=== PATIENT | male | born 1980 | race Caucasian/White ===

== ENCOUNTER 2017-03-28 07:19 | Day surgery (SDC) | payer OTHER ==
[~2017-03-28 07:19] MED LIST: Ketorolac 30 MG/ML SDV ONE; Lactated Ringers 1,000 ML IV SCH; Lactated Ringers 1,000 ML ONE; Lidocaine 1% 4 ML ONE; Lidocaine 1%/Sod Bicarbonate in NS 8.4% 1 ML Syringe PRN; Midazolam 1 MG/ML 2 ML SDV ONE; Ondansetron 4 MG/2 ML SDV ONE; Propofol 200 MG/20 ML SDV ONE; Sodium Chloride 0.9% 10 ML Syringe FLUSH PRN; Succinylcholine 200 MG/10 ML MDV ONE; ceFAZolin 1 GM Vial ONE; fentaNYL 250 MCG/5 ML SDV ONE
--- NOTE | 2017-03-28 07:52 | PCM.PREANE ---
Preanesthetic Assessment - Anesthesia/Transfusion/Family Hx Anesthesia History: Prior Anesthesia Without Reaction Family History of Anesthesia Reaction: No - Review of Systems General: No Symptoms Pulmonary: No Symptoms Cardiovascular: No Symptoms Gastrointestinal: No Symptoms Neurological: Numbness, Tingling (Left Arm/Hand. ) Other: Reports: None, Neck Pain (Neck pain when feeling anxious. ) - Physical Assessment NPO Status Date: 03/27/17 NPO Status Time: 22:45 O2 Sat by Pulse Oximetry: 98 Respiratory Rate: 16 Vital Signs: Last Vital Signs Temp 36.3 C 03/28/17 07:10 Pulse 65 03/28/17 07:10 Resp 16 03/28/17 07:10 BP 134/91 H 03/28/17 07:10 Pulse Ox 98 03/28/17 07:10 Weight: 88 kg ASA Class: 2 Mental Status: Alert & Oriented x3 Dentition: Reports: Normal Dentition (Permanent Retainer) Thyro-Mental Finger Breadths: 3 Mouth Opening Finger Breadths: 3 ROM/Head Extension: Full Lungs: Clear to Auscultation, Normal Respiratory Effort Cardiovascular: Regular Rate, Regular Rhythm - Lab Values: Laboratory Last Values MRSA (PCR) Negative 03/23/17 12:21 - Allergies Allergies/Adverse Reactions: Allergies Allergy/AdvReac Type Severity Reaction Status Date / Time No Known Allergies Allergy Verified 03/25/17 11:59 - Acknowledgements Anesthesia Type Planned: General Anesthesia Pt an Appropriate Candidate for the Planned Anesthesia: Yes Alternatives and Risks of Anesthesia Discussed w Pt/Guardian: Yes Pt/Guardian Understands and Agrees with Anesthesia Plan: Yes PreAnesthesia Questionnaire HEENT History: Reports: None Cardiovascular History: Reports: None Respiratory History: Reports: None Genitourinary History: Reports: None PLANT SCIENTIST History: Reports: None Musculoskeletal History: Reports: Other (See Below) Other Musculoskeletal History: knee surgery Neurological History: Reports: None Psychiatric History: Reports: Anxiety Endocrine/Metabolic History: Reports: None Hematologic History: Reports: None Immunologic History: Reports: None Oncologic (Cancer) History: Reports: None Dermatologic History: Reports: None - Past Surgical History Head Surgeries/Procedures: Reports: None HEENT Surgical History: Reports: Other (See Below) Other HEENT Surgeries/Procedures: permanent retainer Cardiovascular Surgical History: Reports: None Respiratory Surgical History: Reports: None GI Surgical History: Reports: Appendectomy Male Surgical History: Reports: None Endocrine Surgical History: Reports: None Neurological Surgical History: Reports: None Oncologic Surgical History: Reports: None Dermatological Surgical History: Reports: None - SUBSTANCE USE Tobacco Use Within Last Twelve Months: Smokeless Tobacco, Snuff/Dip Days Per Week of Alcohol Use: 7 (Dr. Jimmy moser) Number of Drinks Per Day: 3 Total Drinks Per Week: 21 Date of Last Drink: 03/27/17 Time of Last Drink: 19:00 Recreational Drug Use History: No - HOME MEDS Home Medications: Home Meds . [No Known Home Meds] 03/25/17 [History] - CURRENT (IN HOUSE) MEDS Current Meds: Current Medications Lactated Ringer's (Ringers, Lactated) 1,000 mls @ 125 mls/hr IV ASDIRECTED JESENIA Stop: 03/28/17 23:00 Lidocaine/Sodium Bicarbonate (Buffered Lidocaine 1% In Ns 8.4%) 0.25 ml .XX ONETIME PRN PRN Reason: Prior to IV Start Stop: 03/28/17 18:00 Sodium Chloride (Saline Flush) 10 ml FLUSH ASDIRECTED PRN PRN Reason: Keep Vein Open Stop: 03/28/17 18:00 Discontinued Medications Bupivacaine HCl (Sensorcaine-Mpf 0.25%) Confirm Administered Dose 10 ml .ROUTE .STK-MED ONE Stop: 03/28/17 07:47 Cefazolin Sodium (Ancef) Confirm Administered Dose 2 gm .ROUTE .STK-MED ONE Stop: 03/28/17 07:14 Fentanyl (Sublimaze) Confirm Administered Dose 250 mcg .ROUTE .STK-MED ONE Stop: 03/28/17 07:15 Lactated Ringer's (Ringers, Lactated) Confirm Administered Dose 1,000 mls @ as directed .ROUTE .STK-MED ONE Stop: 03/28/17 07:14 Lidocaine HCl (Xylocaine-Mpf 1%) Confirm Administered Dose 4 mls @ as directed .ROUTE .STK-MED ONE Stop: 03/28/17 07:15 Ketorolac Tromethamine (Toradol) Confirm Administered Dose 30 mg .ROUTE .STK- MED ONE Stop: 03/28/17 07:14 Midazolam HCl (Versed 1 Mg/Ml) Confirm Administered Dose 2 mg .ROUTE .STK-MED ONE Stop: 03/28/17 07:14 Ondansetron HCl (Zofran) Confirm Administered Dose 4 mg .ROUTE .STK-MED ONE Stop: 03/28/17 07:14 Propofol (Diprivan 20 Ml) Confirm Administered Dose 400 mg .ROUTE .STK-MED ONE Stop: 03/28/17 07:14 Succinylcholine Chloride (Quelicin) Confirm Administered Dose 200 mg .ROUTE .STK -MED ONE Stop: 03/28/17 07:15
[2017-03-28] MEDS ORDERED: Scopolamine 1.5 MG Transdermal Patch TRDERM ONE (08:00)
[2017-03-28] MEDS ORDERED: Glycopyrrolate 0.2 MG/ML SDV ONE (09:42)
[2017-03-28] MEDS ORDERED: HYDROmorphone 1 MG/ML Syringe ONE (09:56)
[2017-03-28] MEDS ORDERED: Ondansetron 4 MG/2 ML SDV IVPUSH PRN (09:57)
[2017-03-28] MEDS ORDERED: fentaNYL 100 MCG/2 ML SDV IVPUSH PRN (09:57)
[2017-03-28] MEDS: Bupivacaine 0.25% 10 ML SDV ONE ×2 (09:58→10:41)
[2017-03-28] MEDS ORDERED: Haloperidol Lactate 5 MG/ML SDV IVPUSH ONE (10:30)
--- NOTE | 2017-03-28 11:09 | PCM.POSTAN ---
POST ANESTHESIA ASSESSMENT - MENTAL STATUS Mental Status: Somnolent - VITAL SIGNS Pulse Rate: 71 SaO2: 94 Resp Rate: 13 Blood Pressure: 118/68 Temperature: 37.3 C - RESPIRATORY Respiratory Status: Respiratory Rate WNL, Airway Patent, O2 Saturation Stable, Supplemental Oxygen - CARDIOVASCULAR CV Status: Pulse Rate WNL, Blood Pressure Stable - GASTROINTESTINAL GI Status: No Symptoms - POST OP HYDRATION Hydration Status: Adequate & Stable
[2017-03-28] MEDS: HYDROmorphone 0.5 MG/0.5 ML Syringe IVPUSH PRN ×2 (11:27→11:42)
[2017-03-28] MEDS ORDERED: Acetaminophen/HYDROcodone 325-5 MG Tab PO PRN (12:26)
[2017-03-28 13:04] VITALS: BP 115/80
--- NOTE | 2017-03-28 13:31 | PCM48HPAN ---
Post Anesthesia Note - EVALUATION WITHIN 48HRS OF ANESTHETIC Vital Signs in Normal Range: Yes Patient Participated in Evaluation: Yes Respiratory Function Stable: Yes Airway Patent: Yes Cardiovascular Function Stable: Yes Hydration Status Stable: Yes Pain Control Satisfactory: Yes Nausea and Vomiting Control Satisfactory: Yes Mental Status Recovered: Yes
--- NOTE | 2017-03-28 15:02 | CR ---
Left elbow: Two fluoroscopic spot views were obtained of the left elbow utilizing C-arm device. Study shows operative exam of biceps tendon repair. Fluoroscopy time given as 10.9 seconds. Impression: 1. Operative study as described above. Diagnostic code #2
--- NOTE | 2017-03-30 09:29 | PCM.OPNOTE ---
- General Post-Op/Procedure Note Date of Surgery/Procedure: 03/28/17 Operative Procedure(s): left distal biceps tendon repair Pre Op Diagnosis: left distal biceps tendon rupture Post-Op Diagnosis: Same Anesthesia Technique: General LMA, Local Primary Surgeon: Baltazar Marquez Anesthesia Provider: Aga Galindo Die Trouble Shooter: Deanna Stanford Die Trouble Shooter: Rupesh Arias EBL in mLs: 5 Complications: None Condition: Good
--- NOTE | 2017-03-30 10:23 | OR ---
DATE OF OPERATION: 03/28/2017 SURGEON: Baltazar Marquez MD OPERATION PERFORMED: Left distal biceps tendon repair. PREOPERATIVE DIAGNOSIS: Left distal biceps tendon rupture. POSTOPERATIVE DIAGNOSIS: Left distal biceps tendon rupture. ANESTHESIA TECHNIQUE: General LMA with local. ANESTHESIA PROVIDER: Jade Aguilar CRNA. ASSISTANTS: Deanna Stanford LPN, and Rupesh Arias MD ESTIMATED BLOOD LOSS: Less than 5 mL. COMPLICATIONS: None. CONDITION: Stable. DESCRIPTION OF PROCEDURE: The patient was identified in the preop holding area. Proper site was marked and identified by the surgeon. The patient was taken back to the operating theater, where after adequate anesthesia, the patient's left upper extremity had a nonsterile tourniquet applied. It was then sterilely prepped and draped in the usual sterile fashion. OR time-out was performed. The patient received 2 g IV Ancef. At this time, left upper extremity was elevated and tourniquet was insufflated to 225 mmHg. A standard transverse incision was made, centered over the radial tuberosity with C-arm fluoroscopy was used to make sure was in the proper spot. Incision was then made. A care was taken to protect the antebrachial cutaneous nerve. Blunt dissection was taken down to the biceps tendon. It was noted to be a near complete rupture, but there were some fibers remaining attached to the radial tuberosity. At this time, these were released. The tendon was brought forward out of the wound and was noted to be significantly thickened. At this time, it was trimmed down so that would fit through an 8-mm guide. A whipstitch was then done using an Arthrex FiberLoop with roughly 15-20 mm of the distal end of the tendon. At this time, guidepin was placed in the radial tuberosity roughly in the midportion under C-arm fluoroscopy. This was put through both cortices. At this time, an 8-mm conical drill bit was then used just through the proximal cortices and the guidepin was then removed. At this time, the Endobutton was loaded on the end of the suture of the biceps tendon and the Endobutton was placed through the far cortex and the suture limbs were tightened. The tendon had good excursion into the tunnel and it was placed to hold it in place. Next, the 8-mm Arthrex interference screw was then placed inside the bony tunnel, was found to have adequate fixation. At this time, 3 more knots were tied over the top of the interference screw. At this time, adequate saline was irrigated through the wound, 0.25% Marcaine was used in incisional site and 3-0 Vicryl was used subcutaneously, running 4-0 Monocryl was used subcuticularly. Dermabond was applied. The patient was placed in a posterior slab splint, 60 degrees of flexion. ANESTHESIA: MMODAL /[id number]
== END 2017-03-28 13:07 | disposition home or self-care (01) ==
LOC: JD.SDS 07:19
PROVIDERS: ATTEND Orthopaedic Surgery
PROC: 0L840ZZ Division of Left Upper Arm Tendon, Open Approach (ICD-10-PCS; principal; 2017-03-28)
DX: S46.212A Strain of muscle, fascia and tendon of other parts of biceps, left arm, initial encounter (principal); Z90.49 Acquired absence of other specified parts of digestive tract; Z98.890 Other specified postprocedural states
CPT/HCPCS: 25275; 76000; 87641; A9270; J0690; J1170; J1885; J2250; J2405; J3010; J3490; J7120; 01716; C1776; J0330; J2704

== ENCOUNTER 2022-11-14 12:34 | Emergency (ER) | payer BC, OTHER ==
[2022-11-14 12:51] VITALS: BP 165/98; PULSE 68
[2022-11-14] MEDS ORDERED: Lidocaine 1% 10 ML MDV INJECT ONE (13:03)
[2022-11-14] MEDS ORDERED: Diphtheria,Pertussis(Acell),Tetanus Vaccine 0.5 ML Syringe IM ONE (13:04)
== END 2022-11-14 14:24 | disposition home or self-care (01) ==
LOC: JD.ED 12:34
DX: S01.81XA Laceration without foreign body of other part of head, initial encounter (principal); Z23 Encounter for immunization; W22.8XXA Striking against or struck by other objects, initial encounter; Y92.89 Other specified places as the place of occurrence of the external cause; Y99.0 Civilian activity done for income or pay
CPT/HCPCS: 12011; 90471; 90715; 99282; 99283-25; J3490

== ENCOUNTER 2023-03-19 03:53 | Emergency (ER) | payer BC ==
[2023-03-19] MEDS ORDERED: Sodium Chloride 0.9% 10 ML Syringe FLUSH PRN (04:03)
[2023-03-19] MEDS ORDERED: Aspirin 81 MG Tab.Chew PO ONE (04:04)
[2023-03-19] MEDS ORDERED: LORazepam 2 MG/ML SDV IVPUSH ONE (04:04)
[2023-03-19] MEDS ORDERED: Ondansetron 4 MG/2 ML SDV IVPUSH ONE (04:04)
[2023-03-19 04:25] LABS: BASOPHILS ABSOLUTE AUTO 0.1 K/mm3 (0.0-0.2); BASOPHILS PERCENT AUTO 0.8 % (0.0-1.0); EOSINOPHILS ABSOLUTE AUTO 0.2 K/mm3 (0.0-0.4); EOSINOPHILS PERCENT AUTO 3.3 % (0.0-6.0); HEMATOCRIT 44.8 % (42.0-52.0); HEMOGLOBIN 15.5 gm/dl (14.0-18.0); IMMATURE GRAN ABSOLUTE AUTO 0.02 K/mm3 (0.00-0.05); IMMATURE GRAN PERCENT AUTO 0.3 % (0.0-0.4); LYMPHOCYTES ABSOLUTE AUTO 3.3 K/mm3 (1.0-4.8); LYMPHOCYTES PERCENT AUTO 45.6 % (24.0-44.0); MEAN CORPUSCULAR HEMOGLOBIN 30.3 pg (28.0-32.0); MEAN CORPUSCULAR HGB CONC 34.6 g/dl (32.0-36.0); MEAN CORPUSCULAR VOLUME 87.5 fl (83.0-99.0); MEAN PLATELET VOLUME 8.5 fl (9.4-12.4); MONOCYTES ABSOLUTE AUTO 0.6 K/mm3 (0.0-0.8); MONOCYTES PERCENT AUTO 7.9 % (0.0-8.0); NEUTROPHILS ABSOLUTE AUTO 3.1 K/mm3 (1.8-7.7); NEUTROPHILS PERCENT AUTO 42.1 % (41.0-71.0); PLATELET COUNT,PLT 216 K/mm3 (150-400); RED BLOOD CELL COUNT 5.12 M/mm3 (4.52-5.90); WHITE BLOOD CELL COUNT,WBC 7.24 K/mm3 (3.9-11.3)
[2023-03-19 04:49] LABS: A/G RATIO 1.1 (1-2); ANION GAP 14.8 (5-15); BILIRUBIN TOTAL 0.4 mg/dL (0.2-1.0); BUN/CREATININE RATIO 10.8 (14-18); CALCIUM 9.2 mg/dL (8.5-10.1); CREATININE 1.3 mg/dL (0.7-1.3); EST CRCL DRUG DOSING (CG) 74.02 mL/min; POTASSIUM,K 3.8 mEq/L (3.5-5.1); PROTEIN TOTAL,TP 7.5 g/dl (6.4-8.2)
[2023-03-19 06:29] VITALS: BP 127/72; PULSE 88
== END 2023-03-19 06:26 | disposition home or self-care (01) ==
LOC: JD.ED 03:53
DX: R07.89 Other chest pain (principal); F41.9 Anxiety disorder, unspecified; Z79.899 Other long term (current) drug therapy
CPT/HCPCS: 36415; 71046; 80053; 84484; 85025; 85379; 93005; 96374; 96375; 99285; A9270; J2060; J2405; J3490